=== PATIENT | female | born 1995 | race Caucasian/White ===

== ENCOUNTER → 2016-06-09 | Outpatient (CLI) | payer OTHER ==
[2015-07-04 21:59] VITALS: BP 142/99
--- NOTE | 2016-06-09 13:41 | RAD ---
HISTORY: Fall, back pain Study: Complete lumbar spine Comparison: None Findings: Vertebral alignment is normal. There is no spondylolisthesis. Vertebral body height is maintained th roughout. No compression fracture is visualized. Lumbarization of L5 is incidentally noted. There ap pears to be possible bilateral L5 spondylolysis. However, there is no significant spondylolisthesis at the L5-S1 level. There is mild to moderate narrowing of the disk space at L5-S1 level without sig nificant degenerative endplate sclerosis. IMPRESSION: 1. Possible L5 spondylolysis without significant spondylolisthesis. This may be correlated with CT a s clinically indicated. 2. L5-S1 spondylosis Reported By:
== END ==
LOC: RAD 13:02
PROVIDERS: ATTEND Internal Medicine
DX: M54.5 Low back pain (principal); X58.XXXA Exposure to other specified factors, initial encounter; M47.816 Spondylosis without myelopathy or radiculopathy, lumbar region
CPT/HCPCS: 72110

== ENCOUNTER → 2016-06-30 | Outpatient (CLI) | payer OTHER ==
[2015-07-04 21:59] VITALS: BP 142/99
--- NOTE | 2016-07-01 10:23 | MRI ---
HISTORY: Injury, fall, low back pain Study: MRI lumbar spine without contrast Comparison: None Technique: Multiplanar multi-sequence MRI of the lumbar spine was obtained. Sagittal T1, sagittal T 2, and stir weighted images, axial T1, and axial T2 images were obtained. Findings: The lumbar spine demonstrates normal alignment with the expected signal characteristics of the bone marrow. The conus of the cord terminates normally. T12 -- L1: No evidence for compressive disc disease. The neural foramina are patent. The joints are normal. L1 -- L2: No evidence for compressive disc disease. The neural foramina are patent. The joints are n ormal. L2 -- L3: No evidence for compressive disc disease. The neural foramina are patent. The joints are n ormal. L3 -- L4: No evidence for compressive disc disease. The neural foramina are patent. The joints are n ormal. L4 -- L5: No evidence for compressive disc disease. The neural foramina are patent. The joints are n ormal. L5 -- S1: There is a large mildly compressive central disc protrusion which effaces the thecal sac a nd abuts but does not displace the S1 nerve roots. The neural foramina are patent. The joints are no rmal. IMPRESSION: As above Reported By:
== END ==
LOC: RAD 12:04
PROVIDERS: ATTEND Nurse Practitioner Family
DX: S39.012A Strain of muscle, fascia and tendon of lower back, initial encounter (principal); X58.XXXA Exposure to other specified factors, initial encounter; M54.5 Low back pain
CPT/HCPCS: 72148

== ENCOUNTER 2016-08-24 10:27 | Observation (INO) | payer OTHER ==
[2016-08-24 12:29] VITALS: BMI 21.4
[2016-08-24] MEDS ORDERED: ZOFRAN INJ 4 MG VIAL IVP PRN (12:41)
[2016-08-24] MEDS ORDERED: TORADOL 15 MG VIAL IVP PRN (12:41)
[2016-08-24 12:56] LABS: BASOPHILS # (AUTO) 0.1 X10^3/uL (0.0-0.1); BASOPHILS % (AUTO) 0.7 % (0.2-1.0); EOSINOPHILS # (AUTO) 0.1 x10^3/uL (0.0-0.2); EOSINOPHILS % (AUTO) 0.5 % (0.9-2.9); HEMATOCRIT 40.1 % (36.0-47.0); LYMPHOCYTES # (AUTO) 1.9 X10^3/uL (1.3-2.9); LYMPHOCYTES % (AUTO) 15.3 % (21.0-51.0); MEAN CORPUSCULAR HEMOGLOBIN 26.4 pg (27.0-34.0); MEAN CORPUSCULAR HGB CONC 34.9 g/dL (33.0-35.0); MEAN CORPUSCULAR VOLUME 75.8 fL (80.0-100.0); MEAN PLATELET VOLUME 8.4 fL (7.4-11.0); MONOCYTES # (AUTO) 0.7 x10^3/uL (0.3-0.8); MONOCYTES % (AUTO) 5.9 % (0.0-13.0); NEUTROPHILS # (AUTO) 9.5 x10^3/uL (2.2-4.8); NEUTROPHILS % (AUTO) 77.6 % (42.0-75.0); PLATELET COUNT 335 X10^3/uL (150.0-450.0); RED BLOOD COUNT 5.29 X10^6/uL (3.5-5.4); RED CELL DISTRIBUTION WIDTH 13.4 % (11.6-16.5); WHITE BLOOD COUNT 12.2 X10^3/uL (3.6-10.0)
[2016-08-24] MEDS ORDERED: NS 1000 ML 1,000 ML IV SCH (13:00)
[2016-08-24 13:04] LABS: ALANINE AMINOTRANSFERASE 24 Units/L (12-78); ALBUMIN 4.1 g/dL (3.4-5.0); ALKALINE PHOSPHATASE 108 Units/L (45-150); ASPARTATE AMINO TRANSFERASE 14 Units/L (15-37); BLOOD UREA NITROGEN 13 mg/dL (7-18); CALCIUM 9.3 mg/dL (8.5-10.1); CARBON DIOXIDE 22.5 mmol/L (21-32); CHLORIDE 109 mmol/L (98-107); CREATININE 0.78 mg/dL (0.55-1.02); GLUCOSE 94 mg/dL (65-99); SODIUM 143 mmol/L (136-145); TOTAL PROTEIN 7.8 g/dL (6.4-8.2); eGFR BLACK RACES > 60 (>60); eGFR NON BLACK RACES > 60 (>60)
[2016-08-24] MEDS: ROCEPHIN VIAL 1 GM 1 GM in NS 50 ML IV + SPIKE MINIBAG* 50 ML IV SCH (13:34)
[2016-08-24] MEDS: LEVAQUIN PREMIX IV 500 MG 500 MG/100 ML BAG IV SCH (13:35)
--- NOTE | 2016-08-24 13:47 | CT ---
HISTORY: Left maxillary sinus tenderness Study: CT sinuses without contrast Comparison: None Technique: Axial non contrast images with coronal and sagittal reformats. Dose reduction procedures were used with MA/kv adjusted for body size. Findings: The frontal, sphenoid, maxillary and right ethmoid sinuses are clear. There is mild mucosal inflamma tory change in the left sphenoid sinus. The ostiomeatal complexes are patent. The nasal septum is mi dline. The middle ear spaces and mastoid air cells are clear. IMPRESSION: Mild mucosal thickening in the left sphenoid sinus likely inflammatory in origin. The remainder of the paranasal sinuses are clear. Reported By:
--- NOTE | 2016-08-24 13:52 | RAD ---
HISTORY: Cough, fever, dehydration Study: Chest one view Comparison: None Findings: The trachea is midline. The cardiac silhouette is unremarkable. The lungs are clear without focal infiltrate or effusion. The bony thorax is unremarkable. IMPRESSION: 1. No acute cardiopulmonary disease. Reported By:
[2016-08-24 16:07] LABS: BILIRUBIN,URINE NEGATIVE (NEGATIVE); BLOOD/HEMOGLOBIN,URINE NEGATIVE (NEGATIVE); GLUCOSE, URINE NEGATIVE (NEGATIVE); KETONES,URINE NEGATIVE (NEGATIVE); LEUKOCYTE ESTERASE ,URINE 3+ (NEGATIVE); NITRITES,URINE NEGATIVE (NEGATIVE); PROTEIN,URINE 1+ (NEGATIVE); UROBILINOGEN,URINE NORMAL (NORMAL)
[2016-08-24 16:16] LABS: APPEARANCE,URINE HAZY (CLEAR); BACTERIA,URINE TRACE /HPF (NEGATIVE); COLOR,URINE YELLOW (YELLOW); RBC,URINE 0-2 /HPF (NEGATIVE); SQUAMOUS EPITHELIAL CELL,UR FEW /HPF (NEGATIVE)
--- NOTE | 2016-08-24 18:42 | DR.H&P ---
H&P - History & Physical for Day of: H&P Date: 08/24/16 - Chief Complaint Chief Complaint: FEVER, WAYNE, LEFT EAR PAIN, N/V - Allergies Allergies/Adverse Reactions: Allergies Allergy/AdvReac Type Severity Reaction Status Date / Time MS Azithromycin Allergy Mild Verified 11/28/14 11:08 [From Zithromax] amoxicillin Allergy Verified 08/24/16 11:43 MS Penicillins [Penicillins] Allergy Verified 11/28/14 11:08 - History of Present Illness History of Present Illness: 20 WF DIRECT ADMIT FROM DR GOMEZ'S OFFICE WITH CO LEFT EAR PAIN, STREP THROAT, WAYNE, N/V. PT WAS GIVEN ROCEPHIN 1GM IM LAST WEEK WITH ORAL CEFDINIR, PT'S INSURANCE WOULD NOT PAY FOR MEDS, SO SHE WENT OVER WEEKEND WITHOUT ANTIBIOTICS. PT PALE AND CO NO APPTETITE. PT HAS PMH OF AR. PLAN TO ADMIT FOR IV HYDRATION, IV ATBX, CT SINUS PAIN AND NAUSEA CONTROL. REPEAT THROAT CULTURES. - Past Medical History Past Medical History: Arthritis - Past Surgical History Surgical History: Tonsillectomy - Family History Family Medical History: Diabetes Mellitus, Hypertension - Social History Does patient currently use any type of tobacco product: No Have you used tobacco products in the last 12 months: No Type of Tobacco Use: None Alcohol Use: None Drug Use: None - Medications Home Medications: Cefuroxime Axetil 1 tab PO BID 08/24/16 [History Confirmed 08/24/16] Cyclobenzaprine HCl [FLEXERIL 10 MG *] 1 tab PO TID PRN 08/24/16 [History Confirmed 08/24/16] Methylprednisolone Dosepak 4Mg [MEDROL DOSEPAK (4 mg tab x 21)] 1 tabs PO DAILY 08/24/16 [History Confirmed 08/24/16] Ondansetron [Zofran ODT 8 mg] 1 tab PO TID PRN 08/24/16 [History Confirmed 08/24] Promethazine HCl 1 tab PO BID PRN 08/24/16 [History Confirmed 08/24/16] - Review of Systems Constitutional: Fever, Chills, Sweats, Weakness Eyes: No Symptoms Reported ENT: Ear Pain, Nose Discharge, Throat Pain Respiratory: Cough Cardiovascular: No Symptoms Reported Gastrointestinal: Nausea, Vomiting Genitourinary: No Symptoms Reported Musculoskeletal: Back Pain Skin: No Symptoms Reported Neurological: No Symptoms Reported - Physical Exam Vital Signs: Temperature 97.8 F Pulse Rate [Right Brachial] 91 Respiratory Rate 18 Blood Pressure [Right Arm] 127/81 Blood Pressure [Left Arm] 132/99 Blood Pressure 142/99 O2 Sat by Pulse Oximetry 99 Oriented: Normal Eyes: Normal Ear: Left (TM CLOUDY FLUID LEVEL) Nose: Discharge Throat: Red Respiratory: Clear Throughout Cardiovascular: Normal : Normal Auscultation: Bowel Sounds: Normal Palpation: Normal Tenderness: Epigastric Skin: Normal Musculoskeletal: Back:Thoracic Speech Pattern: Clear, Appropriate - Assessment/Plan (1) Acute sinus infection Qualifiers: Sinusitis location: S Recurrence: R Status: Acute Plan: ADMIT, CT SINUS. IV ATBX, BLOOD CULTURES ON ADMISSION. CXR, IV HYDRATION. NAUSEA CONTROL (2) Nausea vomiting and diarrhea Status: Acute (3) Dehydration Status: Acute
[2016-08-24] MEDS: FLONASE NASAL SPRAY ENOSTRIL SCH (20:22)
[2016-08-24] MEDS: NORCO 5/325 MG TAB PO PRN (20:23)
[2016-08-24] MEDS: ZyrTEC TAB 10 MG PO SCH (20:23)
[2016-08-24] MEDS: COLACE CAP 100 MG PO SCH (20:23)
[2016-08-24] MEDS: PROTONIX INJ 40 MG VIAL IVP SCH (20:23)
[2016-08-24] MEDS: NS 1000 ML 1,000 ML IV SCH (20:30)
[2016-08-25] MEDS: NORCO 5/325 MG TAB PO PRN ×2 (08:28→19:17)
[2016-08-25] MEDS: ZyrTEC TAB 10 MG PO SCH (08:28)
[2016-08-25] MEDS: PROTONIX INJ 40 MG VIAL IVP SCH (08:30)
[2016-08-25] MEDS: ROCEPHIN VIAL 1 GM 1 GM in NS 50 ML IV + SPIKE MINIBAG* 50 ML IV SCH (08:30)
[2016-08-25] MEDS: LEVAQUIN PREMIX IV 500 MG 500 MG/100 ML BAG IV SCH (08:30)
[2016-08-25] MEDS: FLONASE NASAL SPRAY ENOSTRIL SCH (08:31)
[2016-08-25] MEDS ORDERED: FLEXERIL TAB 10 MG PO PRN (10:36)
[2016-08-25] MEDS ORDERED: PATIENT'S HOME MEDICATION (Ondansetron [Zofran Odt 8 Mg] 1 TAB) PO PRN (10:36)
[2016-08-25] MEDS: NS 1000 ML 1,000 ML IV SCH (13:31)
[2016-08-25] MEDS: COLACE CAP 100 MG PO SCH (21:38)
[2016-08-26] MEDS: NS 1000 ML 1,000 ML IV SCH (01:50)
[2016-08-26 07:48] LABS: BASOPHILS # (AUTO) 0.1 X10^3/uL (0.0-0.1); BASOPHILS % (AUTO) 1.1 % (0.2-1.0); EOSINOPHILS # (AUTO) 0.1 x10^3/uL (0.0-0.2); EOSINOPHILS % (AUTO) 1.4 % (0.9-2.9); HEMATOCRIT 40.4 % (36.0-47.0); LYMPHOCYTES # (AUTO) 2.6 X10^3/uL (1.3-2.9); LYMPHOCYTES % (AUTO) 29.7 % (21.0-51.0); MEAN CORPUSCULAR HEMOGLOBIN 26.7 pg (27.0-34.0); MEAN CORPUSCULAR HGB CONC 34.7 g/dL (33.0-35.0); MEAN CORPUSCULAR VOLUME 76.9 fL (80.0-100.0); MEAN PLATELET VOLUME 8.1 fL (7.4-11.0); MONOCYTES # (AUTO) 0.7 x10^3/uL (0.3-0.8); MONOCYTES % (AUTO) 7.9 % (0.0-13.0); NEUTROPHILS # (AUTO) 5.3 x10^3/uL (2.2-4.8); NEUTROPHILS % (AUTO) 59.9 % (42.0-75.0); PLATELET COUNT 318 X10^3/uL (150.0-450.0); RED BLOOD COUNT 5.26 X10^6/uL (3.5-5.4); RED CELL DISTRIBUTION WIDTH 13.4 % (11.6-16.5); WHITE BLOOD COUNT 8.9 X10^3/uL (3.6-10.0)
[2016-08-26 08:00] LABS: ALANINE AMINOTRANSFERASE 21 Units/L (12-78); ALBUMIN 3.6 g/dL (3.4-5.0); ALKALINE PHOSPHATASE 98 Units/L (45-150); ASPARTATE AMINO TRANSFERASE 7 Units/L (15-37); BLOOD UREA NITROGEN 11 mg/dL (7-18); CALCIUM 8.4 mg/dL (8.5-10.1); CHLORIDE 106 mmol/L (98-107); CREATININE 0.81 mg/dL (0.55-1.02); GLUCOSE 94 mg/dL (65-99); SODIUM 139 mmol/L (136-145); TOTAL PROTEIN 7.3 g/dL (6.4-8.2); eGFR BLACK RACES > 60 (>60); eGFR NON BLACK RACES > 60 (>60)
[2016-08-26] MEDS: ROCEPHIN VIAL 1 GM 1 GM in NS 50 ML IV + SPIKE MINIBAG* 50 ML IV SCH (08:24)
[2016-08-26] MEDS: PROTONIX INJ 40 MG VIAL IVP SCH (08:24)
[2016-08-26] MEDS: LEVAQUIN PREMIX IV 500 MG 500 MG/100 ML BAG IV SCH (08:24)
[2016-08-26] MEDS: NORCO 5/325 MG TAB PO PRN (08:24)
[2016-08-26] MEDS: ZyrTEC TAB 10 MG PO SCH (08:25)
[2016-08-26] MEDS: FLONASE NASAL SPRAY ENOSTRIL SCH (08:29)
[2016-08-26 18:13] VITALS: BP 121/90
== END 2016-08-26 18:30 | disposition home or self-care (01) ==
LOC: MED/SURG 10:27 → UNDOADMOB 10:27 → MED/SURG 10:50
PROVIDERS: ADMIT Internal Medicine; ATTEND Internal Medicine
DX: H66.92 Otitis media, unspecified, left ear (principal); R11.2 Nausea with vomiting, unspecified; J02.0 Streptococcal pharyngitis; R51 Headache; J01.80 Other acute sinusitis; R19.7 Diarrhea, unspecified; E86.0 Dehydration; D72.828 Other elevated white blood cell count
CPT/HCPCS: 36415; 70486; 71010; 80053; 81001; 85025; 87040; 87070; 87880; A4222; C9113; G0378; J0696; J1956

== ENCOUNTER 2016-10-08 11:43 | Emergency (ER) | payer OTHER ==
[2016-10-08 12:06] VITALS: BP 129/88; BMI 22.2
--- NOTE | 2016-10-08 12:35 | DR.NAUSEAF ---
HPI - Time Seen Time seen: 12:28 - Primary Care Physician Primary Care Physician: JENKINS - Complaints Chief Complaint Doctors Comments: Patient complains of nausea, vomiting, and diarrhea for the past three days. States she is unable to eat anything without it going through her. states she has been having stomach cramps with the pain being 10 of 10. States her periods are irregular and she is on the Depro Provera shots and she has not missed any dosages. States she has had a cough with fever but denies SOB, chest pain or wheezing. Patient states she has not seen any blood in her stool but sees some blood when she wipes and has rectal irritation. Chief Complaint:: PT. C/O N/V/D X 3 DAYS. PT. ALSO C/O WEAKNESS. PT. STATES SHE HAS BEEN TAKING PHENERGAN BY MOUTH AT HOME. - Reviewed Nurses Notes Reviewed: Yes - Source History Provided: Patient, EMS - Mode of Arrival Mode of Arrival: EMS - Timing Onset of Chief Complaint: 10/05/16 - Context Onset: After Eating Recent: Contact Exposure (new food the other day) Possible Ingestion: Unknown : No : 1 Para: 1 Abortions: 0 History of: None - Quality Quality: Food Particles - Associated Signs and Symptoms Abdominal Pain Quality: Cramping, Sharp Abdominal Pain Location: Diffuse, Epigastric, Suprapubic Symptoms: Abdominal Pain, Diarrhea, Fever PMH - PMH Past Medical History: No Past Medical History: Arthritis Past Surgical History: Yes Surgical History: - Family History History of Family Medical Conditions: Yes Family Medical History: Diabetes Mellitus, Hypertension - Social History Does patient currently use any type of tobacco product: No Have you used tobacco products in the last 12 months: No Type of Tobacco Use: None Does any household member use tobacco: No Alcohol Use: None Do you use any recreational Drugs:: No Lives With: Significant Other Lives Where: Home - infectious screening In the last 2 months have you had wt loss of >10#?: NO Have you had fever, night sweats or hemotysis?: No Have you traveled outside the country in the last 6 months?: No Isolation: Standard ROS - Review of Systems Constitutional: No Symptoms Reported, Chills, Fever, Weakness, Loss of Appetite Eyes: No Symptoms Reported. negative: See HPI, Eye Pain, Blurred Vision, Tearing, Discharge, Photophobia, Diplopia, Other ENTM: No Symptoms Reported, Nose Congestion. negative: See HPI, Ear Pain, Ear Discharge, Pulling on Ears, Hearing Loss, Nose Pain, Nose Discharge, Epistaxis, Mouth Pain, Mouth Swelling, Loose Teeth, Drooling, Throat Pain, Throat Swelling , Ear Foreign Body Respiratoy: No Symptoms Reported, Non-Productive Cough. negative: See HPI, Productive Cough, Moist Cough, Dry Cough, Hacking Cough, Barking Cough, Brassy Cough, Orthopnea, Short of Breath, Stridor, Wheezing, Hemoptysis, Other Cardiovascular: No Symptoms Reported. negative: See HPI, Chest Pain, Edema, Palpitations, Syncope, Cyanosis, Skin Mottling, Other Gastrointestinal/Abdominal: No Symptoms Reported, Abdominal Pain, Diarrhea, Nausea, Vomiting Genitourinary: No Symptoms Reported. negative: See HPI, Discharge, Dysuria, Frequency, Hematuria, Pain, Bleeding, Other Neurological: No Symptoms Reported. negative: See HPI, Anxiety, Depressed, Emotional Problems, Headache, Numbness, Paresthesia, Pre-existing Deficit, Seizure, Tingling, Tremors, Weakness, Dizziness, Problems Walking, Speech Problem, Other Musculoskeletal: No Symptoms Reported Integumentary: No Symptoms Reported. negative: See HPI, Change in Color, Change in Hair/Nails, Dryness, Lesions, Lumps, Rash, Itching, Wound, Bruises, Juandice, Other Hematologic/Lymphatic: No Symptoms Reported Endocrine: No Symptoms Reported, Decreased Appetite Psychiatric: No Symptoms Reported. negative: See HPI, Anxiety, Depression, Hallucinations, Excessive crying, Suicidal, Other PE - Vital Signs Vitals: Temperature 97.7 F Pulse Rate 97 Respiratory Rate 22 Blood Pressure [Right Arm] 121/90 Blood Pressure [Left Arm] 125/89 Blood Pressure 129/88 O2 Sat by Pulse Oximetry 100 - General Limitations: No Limitations. negative: Language Barrier, Altered Mental Status , Physical Limitation, Other General Appearance: Alert, In No Apparent Distress, In Distress (mild) - Head Head Exam: Normal Inspection, Atraumatic, Normocephalic - Eyes Eye exam: Normal Appearance, PERRL, EOMI. negative: Scleral Icterus, Conjunctival Injection, Nystagmus, Miosis, Mydrasis, Periorbital Swelling, Periorbital Tenderness, Other - ENT ENT Exam: Normal Exam, Normal Oropharynx, Normal External Ear Exam, Mucous Membranes Moist, TM's Normal Bilaterally - Neck Neck Exam: Normal Inspection, Full ROM, Trachea Midline. negative: Tenderness, Meningismus, Lymphadenopathy, Thyromegaly, Other - Chest Chest Inspection: Normal Inspection, Symmetric Chest Wall Rise. negative: Tenderness, Rash, Abscess, Other - Respiratory Respiratory Exam: Normal Lung Sounds Bilat. negative: Accessory Muscle Use, Chest Wall Tenderness, Prolonged Expiratory Phase, Respiratory Distress, Stridor , Other Respiratory Exam: Bilateral Clear to Auscultation - Cardiovascular Cardiovascular Exam: Regular Rate, Normal Rhythm, Normal Heart Sounds. negative : Bradycardia, Tachycardia, Irregular Rhythm, Systolic Murmur, Diastolic Murmur , Rubs, Gallop, Clicks, JVD, +S1, +S2, +S3, +S4, Other - Abdominal Exam Abdominal Exam: Normal Inspection, Normal Bowel Sounds, Soft. negative: Distention, Tenderness, Guarding, Rebound, Rigidity, Dimnished Bowel Sounds, Hyperactive Bowel Sounds, Hypoactive Bowel Sounds, Organomegaly, Trauma, Incision, Ascites, Mass, Bruit, Pulsatile Mass, Hernia, Other Abdominal Tenderness: LLQ, Suprapubic, Moderate - Rectal Rectal Exam: Deferred - External Exam: Female: Deferred : Speculum Exam (Female): Deferred : Bimanual Exam (female): Deferred - Extremities Extremities Exam: Normal Inspection, Full ROM, Normal Capillary Refill. negative: Tenderness, Edema, Joint Swelling, Calf Tenderness, Other - Back Back Exam: Normal Inspection, Full ROM. negative: Tenderness, (R) CVA Tenderness, (L) CVA Tenderness, Muscle Spasm, Paraspinal Tenderness, Vertebral Tenderness, Rashes, (R) Sciatic Notch Tenderness, (L) Sciatic Notch Tendern, (R ) Straight Leg Raise, (L) Straight Leg Raise, Other - Neurologic Neurological Exam: Alert, Oriented X3, CN II-XII Intact, Normal Gait, Reflexes Normal - Psychiatric Psychiatric Exam: Normal Affect, Normal Mood - Skin Skin Exam: Warm, Dry, Intact, Normal Color. negative: Rash, Cyanosis, Diaphoresis, Erythema, Pallor, Mottled, Other ROR - Labs Reviewed Laboratory Results Reviewed?: Yes (all labs and x-ray results reviewed and discussed with patient) Result Diagrams: 10/08/16 12:39 10/08/16 12:39 Laboratory: 10/08/16 12:44 Stool - Final WBC 12.7 X10^3/uL (3.6-10.0) H 10/08/16 12:39 RBC 5.12 X10^6/uL (3.5-5.4) 10/08/16 12:39 Hgb 13.5 g/dL (12.0-16.0) 10/08/16 12:39 Hct 39.0 % (36.0-47.0) 10/08/16 12:39 MCV 76.2 fL (80.0-100.0) L 10/08/16 12:39 MCH 26.4 pg (27.0-34.0) L 10/08/16 12:39 MCHC 34.6 g/dL (33.0-35.0) 10/08/16 12:39 RDW 13.2 % (11.6-16.5) 10/08/16 12:39 Plt Count 299 X10^3/uL (150.0-450.0) 10/08/16 12:39 MPV 8.0 fL (7.4-11.0) 10/08/16 12:39 Neut % 73.5 % (42.0-75.0) 10/08/16 12:39 Lymph % 16.8 % (21.0-51.0) L 10/08/16 12:39 Grady % 8.3 % (0.0-13.0) 10/08/16 12:39 Eos % 0.5 % (0.9-2.9) L 10/08/16 12:39 Baso % 0.9 % (0.2-1.0) 10/08/16 12:39 Neut # 9.3 x10^3/uL (2.2-4.8) H 10/08/16 12:39 Lymph # 2.1 X10^3/uL (1.3-2.9) 10/08/16 12:39 Grady # 1.1 x10^3/uL (0.3-0.8) H 10/08/16 12:39 Eos # 0.1 x10^3/uL (0.0-0.2) 10/08/16 12:39 Baso # 0.1 X10^3/uL (0.0-0.1) 10/08/16 12:39 Absolute Nucleated RBC 0.0 /100WBC 10/08/16 12:39 Sodium 138 mmol/L (136-145) 10/08/16 12:39 Corrected Sodium TNP 10/08/16 12:39 Potassium 3.2 mmol/L (3.5-5.1) L 10/08/16 12:39 Chloride 103 mmol/L (98-107) 10/08/16 12:39 Carbon Dioxide 26.2 mmol/L (21-32) 10/08/16 12:39 BUN 6 mg/dL (7-18) L 10/08/16 12:39 Creatinine 0.80 mg/dL (0.55-1.02) 10/08/16 12:39 Est GFR (MDRD) Af Amer > 60 (>60) 10/08/16 12:39 Est GFR (MDRD) Non-Af > 60 (>60) 10/08/16 12:39 Glucose 93 mg/dL (65-99) 10/08/16 12:39 Calcium 8.6 mg/dL (8.5-10.1) 10/08/16 12:39 Corrected Calcium TNP 10/08/16 12:39 Total Bilirubin 0.60 mg/dL (0.2-1.0) 10/08/16 12:39 AST 22 Units/L (15-37) 10/08/16 12:39 ALT 36 Units/L (12-78) 10/08/16 12:39 Alkaline Phosphatase 109 Units/L (45-150) 10/08/16 12:39 Total Protein 8.0 g/dL (6.4-8.2) 10/08/16 12:39 Albumin 3.9 g/dL (3.4-5.0) 10/08/16 12:39 Globulin 4.1 g/dL (2.5-4.5) 10/08/16 12:39 Albumin/Globulin Ratio 1.0 Ratio (1.1-2.1) L 10/08/16 12:39 Amylase 26 Units/L (25-115) 10/08/16 12:39 Lipase 66 Units/L (73-393) L 10/08/16 12:39 HCG, Qual Negative <10 mIU/mL 10/08/16 12:39 Specimen Type Clean catch urine 10/08/16 16:35 Urine Color Yellow (YELLOW) 10/08/16 16:35 Urine Appearance Hazy (CLEAR) 10/08/16 16:35 Urine pH 7.0 (5.0 - 8.0) 10/08/16 16:35 Ur Specific [place] 1.010 (1.000-1.030) 10/08/16 16:35 Urine Protein 2+ (NEGATIVE) 10/08/16 16:35 Urine Glucose (UA) Negative (NEGATIVE) 10/08/16 16:35 Urine Ketones 3+ (NEGATIVE) 10/08/16 16:35 Urine Occult Blood 5+ (NEGATIVE) 10/08/16 16:35 Urine Nitrite Negative (NEGATIVE) 10/08/16 16:35 Urine Bilirubin Negative (NEGATIVE) 10/08/16 16:35 Urine Urobilinogen Normal (NORMAL) 10/08/16 16:35 Ur Leukocyte Esterase 1+ (NEGATIVE) 10/08/16 16:35 Urine RBC 08 - 12 /HPF (NEGATIVE) 10/08/16 16:35 Urine WBC 02 - 05 /HPF (NEGATIVE) 10/08/16 16:35 Ur Squamous Epith Cells Many /HPF (NEGATIVE) 10/08/16 16:35 Amorphous Sediment 2+ /HPF (NEGATIVE) 10/08/16 16:35 Urine Bacteria Trace /HPF (NEGATIVE) 10/08/16 16:35 Hyaline Casts Rare /LPF (NEGATIVE) 10/08/16 16:35 Urine Mucus Moderate /HPF (NEGATIVE) 10/08/16 16:35 Ur Culture Indicated? No/not indicated 10/08/16 16:35 Stool Description <1 g. unformed/brown 10/08/16 12:44 Stl Occult Blood (IFOB) Positive (NEGATIVE) A 10/08/16 12:44 Stool for White Cells Few (None) 10/08/16 12:44 Stl C. diff Tox B Gene Negative (NEGATIVE) 10/08/16 12:44 Stl C. diff [id number] Negative (NEGATIVE) 10/08/16 12:44 - XRAY XRAY Interpreted by: Radiologist (CT abdomen and pelvis: Multiple reactive lymph nodes suggestive of mesenteric adenits. Normal appendix. Normal gallbladder) - Diagnosis Discharge Problem: Gastroenteritis, Proctitis, Hypokalemia, Abdominal pain, Mesenteric adenitis - Discharge Plan Disposition: 01 HOME, SELF-CARE Condition: Stable Prescriptions: RX: Diphenoxylate/Atropine [LOMOTIL TAB *] 1 tab PO BID #14 tab RX: Levofloxacin [LEVAQUIN TAB 500 MG *] 500 mg PO DAILY #10 tab RX: Ondansetron [Zofran Odt] 4 mg PO Q8H PRN #12 tab PRN Reason: Nausea/Vomiting - Follow ups/Referrals Follow ups/Referrals: TOMAS JENKINS [Primary Care Provider] - 3 days - Instructions Instructions: Viral Gastroenteritis, Adult, Contact Precautions, [id number], Mesenteric Adenitis, Pediatric, Hypokalemia
[2016-10-08] MEDS ORDERED: ZOFRAN INJ 4 MG VIAL IVP ONE (12:44)
[2016-10-08] MEDS ORDERED: LOMOTIL PO ONE (12:44)
[2016-10-08] MEDS ORDERED: TORADOL 30 MG VIAL IVP STA (12:44)
[2016-10-08 12:49] LABS: BASOPHILS # (AUTO) 0.1 X10^3/uL (0.0-0.1); BASOPHILS % (AUTO) 0.9 % (0.2-1.0); EOSINOPHILS # (AUTO) 0.1 x10^3/uL (0.0-0.2); EOSINOPHILS % (AUTO) 0.5 % (0.9-2.9); HEMOGLOBIN 13.5 g/dL (12.0-16.0); LYMPHOCYTES # (AUTO) 2.1 X10^3/uL (1.3-2.9); LYMPHOCYTES % (AUTO) 16.8 % (21.0-51.0); MEAN CORPUSCULAR HEMOGLOBIN 26.4 pg (27.0-34.0); MEAN CORPUSCULAR HGB CONC 34.6 g/dL (33.0-35.0); MEAN CORPUSCULAR VOLUME 76.2 fL (80.0-100.0); MONOCYTES # (AUTO) 1.1 x10^3/uL (0.3-0.8); MONOCYTES % (AUTO) 8.3 % (0.0-13.0); NEUTROPHILS # (AUTO) 9.3 x10^3/uL (2.2-4.8); NEUTROPHILS % (AUTO) 73.5 % (42.0-75.0); PLATELET COUNT 299 X10^3/uL (150.0-450.0); RED BLOOD COUNT 5.12 X10^6/uL (3.5-5.4); RED CELL DISTRIBUTION WIDTH 13.2 % (11.6-16.5); WHITE BLOOD COUNT 12.7 X10^3/uL (3.6-10.0)
[2016-10-08 13:00] LABS: ALANINE AMINOTRANSFERASE 36 Units/L (12-78); ALBUMIN 3.9 g/dL (3.4-5.0); ALKALINE PHOSPHATASE 109 Units/L (45-150); AMYLASE 26 Units/L (25-115); ASPARTATE AMINO TRANSFERASE 22 Units/L (15-37); BLOOD UREA NITROGEN 6 mg/dL (7-18); CALCIUM 8.6 mg/dL (8.5-10.1); CARBON DIOXIDE 26.2 mmol/L (21-32); CHLORIDE 103 mmol/L (98-107); GLUCOSE 93 mg/dL (65-99); LIPASE 66 Units/L (73-393); SODIUM 138 mmol/L (136-145); eGFR BLACK RACES > 60 (>60); eGFR NON BLACK RACES > 60 (>60)
[2016-10-08] MEDS ORDERED: ZOFRAN INJ 4 MG VIAL ONE (13:07)
[2016-10-08] MEDS ORDERED: TORADOL 30 MG VIAL ONE (13:07)
[2016-10-08] MEDS ORDERED: LOMOTIL ONE (13:08)
[2016-10-08 13:24] LABS: STOOL FOR WBC Few
[2016-10-08 13:29] LABS: SERUM PREGNANCY TEST, QUAL NEGATIVE <10 mIU/mL
--- NOTE | 2016-10-08 13:30 | CT ---
CT ABDOMEN AND PELVIS WITHOUT CONTRAST CLINICAL HISTORY: 20-year-old female with nausea, vomiting and diarrhea. COMPARISON: None. TECHNIQUE: Multiple contiguous computed tomographic axial images of the abdomen and pelvis were obta ined without the use of oral or intravenous contrast. Images were reformatted in the coronal and sag ittal planes. FINDINGS: The lung bases demonstrate no evidence of focal air-space opacification, pleural effusion, pneumotho rax, or suspicious pulmonary nodules. The imaged inferior mediastinum and heart are normal in appea steven without evidence of pericardial effusion. The liver, gallbladder, pancreas, and spleen are within normal limits for noncontrast imaging. The adrenal glands and kidneys are normal bilaterally. There are no nephroureteral stones or perinep hric fluid collections. There is no evidence of hydroureteronephrosis and the ureters run in an unob structed course to a well distended urinary bladder. The uterus is anteverted and retroflexed and normal in size. The ovaries, vagina and perineum are w ithin normal limits. There are multiple lymph nodes throughout the mesentery with a conglomeration of enlarged reactive a ppearing nodes in the right lower quadrant measuring up to 9 mm. The appendix is normal in appearanc e. The bowel is without obstruction or inflammation and there is no free fluid or free air within t he peritoneal cavity. There are no pathologically enlarged lymph nodes in the abdomen or pelvis. The arteriovascular structures are within normal limits for a study without contrast. Soft tissues are normal. The osseous structures are intact without fracture or malalignment. IMPRESSION: 1. Multiple reactive lymph nodes within the mesenteries and right lower quadrant suggestive of mesen teric adenitis, with no other acute intra-abdominal or intrapelvic process. 2. Normal appendix. 3. Normal gallbladder. Reported By:
[2016-10-08] MEDS ORDERED: ROCEPHIN VIAL 1 GM 1 GM in NS 50 ML IV + SPIKE MINIBAG* 50 ML IV ONE (14:50)
[2016-10-08] MEDS ORDERED: PROTONIX INJ 40 MG VIAL IVP ONE (14:51)
[2016-10-08] MEDS ORDERED: NS 1/2 + KCL 20 MEQ/L 1,000 ML IV ONE (14:54)
[2016-10-08] MEDS ORDERED: ROCEPHIN 1 GM IV PREMIX * OUT OF STOCK 50 ML IV ONE (15:06)
[2016-10-08] MEDS ORDERED: NS 1/2 1000 ML IV 1,000 ML IV ONE (15:24)
[2016-10-08 17:00] LABS: BILIRUBIN,URINE NEGATIVE (NEGATIVE); BLOOD/HEMOGLOBIN,URINE 5+ (NEGATIVE); GLUCOSE, URINE NEGATIVE (NEGATIVE); KETONES,URINE 3+ (NEGATIVE); LEUKOCYTE ESTERASE ,URINE 1+ (NEGATIVE); NITRITES,URINE NEGATIVE (NEGATIVE); PROTEIN,URINE 2+ (NEGATIVE); UROBILINOGEN,URINE NORMAL (NORMAL)
[2016-10-08 17:16] LABS: APPEARANCE,URINE HAZY (CLEAR); COLOR,URINE YELLOW (YELLOW)
[2016-10-08 17:20] LABS: SQUAMOUS EPITHELIAL CELL,UR MANY /HPF (NEGATIVE)
[2016-10-08 17:21] LABS: AMORPHOUS SEDIMENT,UR 2+ /HPF (NEGATIVE); BACTERIA,URINE TRACE /HPF (NEGATIVE); HYALINE CASTS, URINE RARE /LPF (NEGATIVE); MUCUS,URINE MODERATE /HPF (NEGATIVE)
== END 2016-10-08 17:58 | disposition home or self-care (01) ==
LOC: ER 11:47
DX: K52.89 Other specified noninfective gastroenteritis and colitis (principal); K62.89 Other specified diseases of anus and rectum; R10.84 Generalized abdominal pain; I88.0 Nonspecific mesenteric lymphadenitis
CPT/HCPCS: 36415; 74176; 80053; 81001; 82150; 82270; 83690; 84703; 85025; 87045; 87205; 87427; 87493; 87899; 96365; 96367; 96374; 96375; 99283; A4216; A4222; C9113; J0696; J1885; J2405

== ENCOUNTER 2017-04-14 20:26 | Emergency (ER) | payer OTHER ==
[2017-04-14 20:39] VITALS: BMI 20.7
[2017-04-14] MEDS ORDERED: TORADOL 30 MG VIAL IVP STA (21:09)
[2017-04-14] MEDS ORDERED: ZOFRAN INJ 4 MG VIAL IVP ONE (21:09)
--- NOTE | 2017-04-14 21:15 | DR.GENAD ---
HPI - PCP Primary Care Physician: PATRICIA - Complaint/Symptoms Chief Complaint Doctors Comments: Patient complains of left temporal pain and occipital pain onset after taking a Depro shot recently. States she has been having dry heaves today but denies cold, cough, fever or chills. States the pain is 10 of 10 and is the worst headache of her life. States she took tylenol earlier but it did not help. States this is the worst headache of her whole life. She denies numbness, tingling, slurred speech or blurred vision. She denies any recent trauma. States she has had a headache all day. Chief Complaint:: SEVERE HEADACHE AFTER GETTING DEPO SHOT FROM HEALTH DEPARTMENT ; NO S/S AT SIGHT WHERE SHOT WAS GIVEN; PT SAW PRIMARY CARE ON MONDAY FOR NAUSEA AND DIAHRREA Self Treatment fo Chief Complaint: EXCEDRIN MIGRAINE; LAST DOSE APPROX 1830 TODAY - Nurses notes reviewed Nurses Notes Review: Yes - Source History Provided: Patient - Mode of Arrival Mode of Arrival: Ambulatory - Timing Onset of Chief Complaint: 04/13/17 Came on: Suddenly - Duration Duration: Constant How lon Duration: Days - Location Location: left temporal headache - Severity Severity: Moderate - Modifying Factors Worsens:: nothing Improves:: nothing PMH - PMH Past Medical History: No Past Medical History: Arthritis Past Surgical History: No Surgical History: - Family History History of Family Medical Conditions: No Family Medical History: Diabetes Mellitus, Hypertension - Social History Alcohol Use: None Do you use any recreational Drugs:: No Lives With: Family Lives Where: Home - infectious screening In the last 2 months have you had wt loss of >10#?: NO Have you had fever, night sweats or hemotysis?: No Have you traveled outside the country in the last 6 months?: No Isolation: Standard ROS - Review of Systems Constitutional: No Symptoms Reported. negative: See HPI, Chills, Diaphoresis, Fever, Malaise, Weakness, Irritable, Fatigue, Loss of Appetite, Other Eyes: No Symptoms Reported. negative: See HPI, Eye Pain, Blurred Vision, Tearing, Discharge, Photophobia, Diplopia, Other ENTM: No Symptoms Reported, Nose Discharge, Nose Congestion. negative: See HPI , Ear Pain, Ear Discharge, Pulling on Ears, Hearing Loss, Nose Pain, Epistaxis, Mouth Pain, Mouth Swelling, Loose Teeth, Drooling, Throat Pain, Throat Swelling , Ear Foreign Body Respiratoy: No Symptoms Reported. negative: See HPI, Productive Cough, Non- Productive Cough, Moist Cough, Dry Cough, Hacking Cough, Barking Cough, Brassy Cough, Orthopnea, Short of Breath, Stridor, Wheezing, Hemoptysis, Other Cardiovascular: No Symptoms Reported. negative: See HPI, Chest Pain, Edema, Palpitations, Syncope, Cyanosis, Skin Mottling, Other Gastrointestinal/Abdominal: No Symptoms Reported, Nausea. negative: See HPI, Abdominal Pain, Constipation, Diarrhea, Vomiting, Food Intolerance, Other Genitourinary: No Symptoms Reported. negative: See HPI, Discharge, Dysuria, Frequency, Hematuria, Pain, Bleeding, Other Neurological: No Symptoms Reported, Headache. negative: See HPI, Anxiety, Depressed, Emotional Problems, Numbness, Paresthesia, Pre-existing Deficit, Seizure, Tingling, Tremors, Weakness, Dizziness, Problems Walking, Speech Problem, Other Musculoskeletal: No Symptoms Reported Integumentary: No Symptoms Reported Hematologic/Lymphatic: No Symptoms Reported. negative: See HPI, Anemia, Blood Clots, Easy Bleeding, Easy Bruising, Swollen Glands, Lymphadenopathy, Other Endocrine: No Symptoms Reported Psychiatric: No Symptoms Reported. negative: See HPI, Anxiety, Depression, Hallucinations, Excessive crying, Suicidal, Other PE - Vital Signs Vitals: Pulse Rate 98 Respiratory Rate 22 Blood Pressure [Right Arm] 121/90 Blood Pressure [Left Arm] 125/89 Blood Pressure 132/88 O2 Sat by Pulse Oximetry 100 - General Limitations: No Limitations General Appearance: Alert, In Distress (mild) - Head Head Exam: Normal Inspection, Atraumatic, Normocephalic - Eyes Eye exam: Normal Appearance, PERRL, EOMI. negative: Scleral Icterus, Conjunctival Injection, Nystagmus, Miosis, Mydrasis, Periorbital Swelling, Periorbital Tenderness, Other - ENT ENT Exam: Normal Exam, Normal Oropharynx, Normal External Ear Exam, Mucous Membranes Moist, TM's Normal Bilaterally External Ear Exam: Normal External Inspection TM/Canal Exam: Bilateral Normal Nose Exam: Normal Nose Exam (nasal congestion with erythema) Mouth Exam: Normal Inspection. negative: Drooling, Trismus, Lip Swelling, Tongue Elevation, Tongue Swelling, Laceration, Other Throat Exam: Normal Inspection. negative: Tonsillar Erythema, Tonsillomegaly, Tonsillar Exudate, R Peritonsillar Mass, L Peritonsillar Mass, Muffled Voice, Other - Neck Neck Exam: Normal Inspection, Full ROM, Trachea Midline. negative: Tenderness, Meningismus, Lymphadenopathy, Thyromegaly, Other - Chest Chest Inspection: Normal Inspection, Symmetric Chest Wall Rise. negative: Tenderness, Rash, Abscess, Other - Respiratory Respiratory Exam: Normal Lung Sounds Bilat Respiratory Exam: Bilateral Clear to Auscultation - Cardiovascular Cardiovascular Exam: Regular Rate, Normal Rhythm, Normal Heart Sounds. negative : Bradycardia, Tachycardia, Irregular Rhythm, Systolic Murmur, Diastolic Murmur , Rubs, Gallop, Clicks, JVD, +S1, +S2, +S3, +S4, Other - Abdominal Exam Abdominal Exam: Normal Inspection, Normal Bowel Sounds, Soft Abdominal Tenderness: negative: RUQ, RLQ, LUQ, LLQ, Epigastrium, Suprapubic, Diffuse, Mild, Moderate, Severe, Other - Extremities Extremities Exam: Normal Inspection, Full ROM, Normal Capillary Refill. negative: Tenderness, Edema, Joint Swelling, Calf Tenderness, Other - Back Back Exam: Normal Inspection, Full ROM. negative: Tenderness, (R) CVA Tenderness, (L) CVA Tenderness, Muscle Spasm, Paraspinal Tenderness, Vertebral Tenderness, Rashes, (R) Sciatic Notch Tenderness, (L) Sciatic Notch Tendern, (R ) Straight Leg Raise, (L) Straight Leg Raise, Other - Neurologic Neurological Exam: Alert, Oriented X3, CN II-XII Intact, Reflexes Normal. negative: Normal Gait (gait not tested) - Psychiatric Psychiatric Exam: Normal Affect, Normal Mood. negative: Depressed, Agitated, Anxious, Flat Affect, Manic, Homicidal Ideation, Suicidal Ideation, Other - Skin Skin Exam: Warm, Dry, Intact, Normal Color ROR - XRAY XRAY Interpreted by: Radiologist (CT head: Unremarbable CT of head.) - Diagnosis Discharge Problem: Acute frontal sinusitis Headache Qualifiers: Headache type: unspecified Headache chronicity pattern: acute headache - Discharge Plan Disposition: 01 HOME, SELF-CARE Condition: Stable Prescriptions: Cetirizine HCl [Zyrtec Tab 10 mg] 10 mg PO DAILY #30 tab Fluticasone Nasal Ovid [FLONASE NASAL SPRAY *] 2 sprays ENOSTRIL DAILY #1 each Ibuprofen [MOTRIN TAB 800 MG *] 800 mg PO BID PRN #30 tab PRN Reason: Pain/Inflammation - Follow ups/Referrals Follow ups/Referrals: ERROL GOMEZ [Primary Care Provider] - 3 days - Instructions Instructions: Headache, Pediatric, Sinus Headache, [id number], Sinusitis, Adult, [id number]
[2017-04-14] MEDS ORDERED: TORADOL 30 MG VIAL ONE (21:33)
[2017-04-14] MEDS ORDERED: ZOFRAN INJ 4 MG VIAL ONE (21:33)
--- NOTE | 2017-04-14 21:35 | CT ---
CT of the head without contrast. Indication: Severe headache. Comparison: None Findings: There is no intracranial hemorrhage, mass effect or evidence of acute ischemia. The ventric les and extra-axial spaces are normal. The globes, sella and posterior fossa show no abnormality. The visualized paranasal sinuses and mastoid air cells are clear bilaterally. Conclusion: Unremarkable CT of the head. Reported By:
[2017-04-14 21:50] LABS: BILIRUBIN,URINE NEGATIVE (NEGATIVE); BLOOD/HEMOGLOBIN,URINE NEGATIVE (NEGATIVE); GLUCOSE, URINE NEGATIVE (NEGATIVE); KETONES,URINE NEGATIVE (NEGATIVE); LEUKOCYTE ESTERASE ,URINE NEGATIVE (NEGATIVE); NITRITES,URINE POSITIVE (NEGATIVE); PROTEIN,URINE NEGATIVE (NEGATIVE); UROBILINOGEN,URINE NORMAL (NORMAL)
[2017-04-14 22:21] VITALS: BP 134/76
[2017-04-14 23:19] LABS: AMORPHOUS SEDIMENT,UR 2+ /HPF (NEGATIVE); APPEARANCE,URINE CLOUDY (CLEAR); BACTERIA,URINE 2+ /HPF (NEGATIVE); COLOR,URINE YELLOW (YELLOW); RBC,URINE 0-3 /HPF (NEGATIVE); SQUAMOUS EPITHELIAL CELL,UR FEW /HPF (NEGATIVE)
== END 2017-04-14 22:36 | disposition home or self-care (01) ==
LOC: ER 20:33
DX: J01.80 Other acute sinusitis (principal); R51 Headache; B96.29 Other Escherichia coli [E. coli] as the cause of diseases classified elsewhere
CPT/HCPCS: 70450; 81001; 87086; 87088; 87186; 96365; 96374; 96375; 99282; 99283; J1885; J2405

== ENCOUNTER → 2017-06-22 | Outpatient (CLI) | payer OTHER ==
--- NOTE | 2017-06-22 11:25 | MRI ---
STUDY: MRI OF THE LUMBAR SPINE HISTORY: Low back pain that extends down both legs. Comparison: None. Technique: Multiplanar multi-sequence MRI of the lumbar spine was performed. Sagittal T1, sagittal T 2, and STIR images, axial T1, and axial T2 images were obtained. Findings: Sagittal images: Vertebral body heights and alignment are within normal limits. Marrow signal is age-appropriate. Ther e is degenerative disc disease at the L5/S1 level. No significant endplate changes appreciated. The conus medullaris is normal in appearance terminating at the level of L2. Axial images: T12 -- L1: Normal. L1 -- L2: Normal. L2 -- L3: Normal. L3 -- L4: Normal. L4 -- L5: Normal. L5 -- S1: There is a broad-based disc bulge with central focal disc herniation. This results in effac ement of the ventral thecal sac, but no significant spinal stenosis. No definite nerve root compressi on is appreciated. The neural foramina are adequate. IMPRESSION: 1. Degenerative disc disease at L5/S1, with central focal disc herniation. 2. No significant spinal stenosis or neural foraminal narrowing. Reported By:
== END | disposition home or self-care (01) | DRG 552 ==
LOC: RAD 09:52
PROVIDERS: ATTEND Nurse Practitioner Family
DX: M54.5 Low back pain (principal); M51.37 Other intervertebral disc degeneration, lumbosacral region
CPT/HCPCS: 72148

== ENCOUNTER 2020-03-31 10:54 | Observation (INO) ==
[2020-03-31 10:57] VITALS: BMI 28.1
[2020-03-31] MEDS ORDERED: DEMEROL INJ IVP ONE ×2 (11:10→13:26)
[2020-03-31] MEDS ORDERED: ZOFRAN INJ 4 MG VIAL IVP ONE (11:10)
[2020-03-31] MEDS ORDERED: ZOFRAN INJ 4 MG VIAL ONE ×2 (11:18→18:17)
[2020-03-31] MEDS ORDERED: DEMEROL INJ ONE ×4 (11:18→22:41)
[2020-03-31] MEDS ORDERED: NS 1000 ML 1,000 ML ONE ×2 (11:18→19:46)
[2020-03-31 11:26] LABS: BILIRUBIN,URINE NEGATIVE (NEGATIVE); BLOOD/HEMOGLOBIN,URINE NEGATIVE (NEGATIVE); GLUCOSE, URINE NEGATIVE (NEGATIVE); KETONES,URINE NEGATIVE (NEGATIVE); LEUKOCYTE ESTERASE ,URINE 1+ (NEGATIVE); NITRITES,URINE NEGATIVE (NEGATIVE); PH,URINE 6.5 (5.0 - 8.0); PROTEIN,URINE NEGATIVE (NEGATIVE); UROBILINOGEN,URINE NORMAL (NORMAL)
--- NOTE | 2020-03-31 11:27 | ED.ABDFE ---
HPI Time Seen Time Seen by Provider: 03/31/20 11:06 PCP Primary Care Physician: RENÉE HPI Comment HPI Comment: PATIENT IS 24YR OLD FEMALE IN ER WITH RLQ ABDOMINAL PAIN TIMES 3 DAYS. PAIN IS 10/10, SHARP, RADIATING TO THE BACK. PAIN ASSOCIATED WITH NAUSEA. DENIES FEVER, VOMITING, DIARRHEA OR DYAURIA OR HEMATURIA. PAIN UNBEARABLE TODAY. DENIES VAGINAL DISCHARGE. Complaint Doctors Chief Complaint Comments: RLQ ABDOMINAL PAIN WITH NAUSEA TIMES 3 DAYS. Chief Complaint:: PT. C/O RLQ PAIN, ONSET OF MONDAY WELL NAUSEA. COVID-19 Coronavirus risk:travel/contact w/high risk person: No Has patient experienced Coronavirus symptoms: No Reviewed Nurses Notes Review: Yes Source History Provided: Patient Mode of arrival Mode of Arrival: Wheelchair Timing Onset of Chief Complaint: 03/28/20 Came on: Suddenly Duration Since Onset: Constant Duration: Days Location Location: Diffuse Severity Severity: Moderate Quality Quality: Sharp Context History of: None Modifying factors Worsening Factors: Exertion Improving Factors: Lying Still Associated signs and symptoms Associated Signs and Symptoms: Nausea PMH PMH Past Medical History: Yes Past Medical History: Arthritis Past Surgical History: Yes Surgical History: Thyroidectomy Family History History of Family Medical Conditions: Yes Family Medical History: Coronary Artery Disease and Hypertension Social History Does patient currently use any type of tobacco product: No Have you used tobacco products in the last 12 months: No Type of Tobacco Use: None Does any household member use tobacco: No Alcohol Use: None Do you use any recreational Drugs:: No Lives With: Spouse Lives Where: Home Travel Risk Coronavirus risk:travel/contact w/high risk person: No Has patient experienced Coronavirus symptoms: No Infectious screening In the last 2 months have you had wt loss of >10#?: NO Have you had fever, night sweats or hemotysis?: No Have you traveled outside the country in the last 6 months?: No Isolation: Standard ROS Review of Systems Constitutional: No Symptoms Reported and See HPI; negative Fever, Weakness and Fatigue Eyes: No Symptoms Reported and See HPI ENTM: No Symptoms Reported and See HPI; negative Nose Discharge and Nose Congestion Respiratoy: No Symptoms Reported and See HPI; negative Productive Cough, Short of Breath and Wheezing Cardiovascular: No Symptoms Reported and See HPI; negative Chest Pain Gastrointestinal/Abdominal: See HPI and Abdominal Pain Genitourinary: No Symptoms Reported and See HPI; negative Dysuria, Frequency and Hematuria Neurological: No Symptoms Reported and See HPI; negative Headache, Weakness and Dizziness Musculoskeletal: No Symptoms Reported and See HPI; negative Back Pain Integumentary: No Symptoms Reported and See HPI; negative Change in Color, Rash and Juandice Hematologic/Lymphatic: No Symptoms Reported and See HPI; negative Easy Bruising and Swollen Glands Endocrine: No Symptoms Reported and See HPI; negative Increased Thirst and Increased Urine Psychiatric: No Symptoms Reported and See HPI All Other Systems: Reviewed and Negative PE Vital Signs Vitals: Temperature 98.1 F Pulse Rate [Left Radial] 76 Pulse Rate 109 Respiratory Rate 18 Blood Pressure [Right Arm] 127/73 Blood Pressure [Left Arm] 114/70 Blood Pressure 138/91 O2 Sat by Pulse Oximetry 100 General Limitations: No Limitations and Language Barrier General Appearance: Alert and In No Apparent Distress Head Head Exam: Normal Inspection Eyes Eye exam: Normal Appearance and PERRL; negative Scleral Icterus and Conjunctival Injection ENT ENT Exam: Normal Exam, Normal Oropharynx, Normal External Ear Exam and TM's Normal Bilaterally Neck Neck Exam: Normal Inspection and Trachea Midline; negative Tenderness and Lymphadenopathy Chest Chest Inspection: Normal Inspection and Symmetric Chest Wall Rise; negative Tenderness Respiratory Respiratory Exam: Normal Lung Sounds Bilat; negative Accessory Muscle Use, Chest Wall Tenderness and Respiratory Distress Respiratory Exam: Bilateral: Clear to Auscultation Cardiovascular Cardiovascular Exam: Regular Rate, Normal Rhythm and Normal Heart Sounds; negative Systolic Murmur and Diastolic Murmur Abdominal Exam Abdominal Exam: Normal Bowel Sounds, Soft and Tenderness Abdominal Tenderness: RLQ and Moderate Rectal Rectal Exam: Deferred Back Back Exam: Normal Inspection; negative (R) CVA Tenderness and (L) CVA Tenderness Extremeties Extremities Exam: Normal Inspection and Normal Capillary Refill; negative Tenderness, Edema and Calf Tenderness External Exam: Female: Deferred : Speculum Exam (Female): Deferred : Bimanual Exam (female): Deferred Neurologic Neurological Exam: Alert, Oriented X3 and CN II-XII Intact; negative Motor Sensory Deficit Psychiatric Psychiatric Exam: Normal Affect and Normal Mood Skin Skin Exam: Warm, Dry and Intact MDM Differential Diagnosis Differential Diagnosis- Considerations may include:: Appendicitis, Cholcystitis, Cholelethiasis, Constipation, Gastritus/PUD, Inflammatory BD, Ischemic Bowel, Ovarian cyst/torsion, Pancreatitis, Urinary tract infection and Urolithiasis COURSE Treatment Treatment: SEE ORDERS. NS 125CC/HR, DEMOROL 25MG IV AND ZOFRAN 4MG IV. Education/Counseling Education/Counseling: Patient Educated On: Diagnosis ROR Labs Reviewed Laboratory Results Reviewed?: Yes Result Diagrams: 04/02/20 05:21 04/02/20 05:21 Laboratory: WBC 12.1 X10^3/uL (3.6-10.0) H 03/31/20 11:22 RBC 5.23 X10^6/uL (3.5-5.4) 03/31/20 11:22 Hgb 14.1 g/dL (12.0-16.0) 03/31/20 11:22 Hct 41.2 % (36.0-47.0) 03/31/20 11:22 MCV 78.7 fL (80.0-100.0) L 03/31/20 11:22 MCH 26.9 pg (27.0-34.0) L 03/31/20 11:22 MCHC 34.1 g/dL (33.0-35.0) 03/31/20 11:22 RDW 12.8 % (11.6-16.5) 03/31/20 11:22 Plt Count 351 X10^3/uL (150.0-450.0) 03/31/20 11:22 MPV 7.7 fL (7.4-11.0) 03/31/20 11:22 Neut % (Auto) 73.8 % (42.0-75.0) 03/31/20 11:22 Lymph % (Auto) 18.5 % (21.0-51.0) L 03/31/20 11:22 Hinds % (Auto) 5.5 % (0.0-13.0) 03/31/20 11:22 Eos % (Auto) 1.6 % (0.9-2.9) 03/31/20 11:22 Baso % (Auto) 0.6 % (0.2-1.0) 03/31/20 11:22 Neut # (Auto) 8.9 x10^3/uL (2.2-4.8) H 03/31/20 11:22 Lymph # (Auto) 2.2 X10^3/uL (1.3-2.9) 03/31/20 11:22 Hinds # (Auto) 0.7 x10^3/uL (0.3-0.8) 03/31/20 11:22 Eos # (Auto) 0.2 x10^3/uL (0.0-0.2) 03/31/20 11:22 Baso # (Auto) 0.1 X10^3/uL (0.0-0.1) 03/31/20 11:22 Absolute Nucleated RBC 0.1 /100WBC 03/31/20 11:22 Sodium 139 mmol/L (136-145) 03/31/20 11:22 Corrected Sodium TNP 03/31/20 11:22 Potassium 3.6 mmol/L (3.5-5.1) 03/31/20 11:22 Chloride 104 mmol/L (98-107) 03/31/20 11:22 Carbon Dioxide 24.2 mmol/L (21-32) 03/31/20 11:22 BUN 8 mg/dL (7-18) 03/31/20 11:22 Creatinine 0.69 mg/dL (0.55-1.02) 03/31/20 11:22 Est GFR (MDRD) Af Amer > 60 (>60) 03/31/20 11:22 Est GFR (MDRD) Non-Af > 60 (>60) 03/31/20 11:22 Glucose 96 mg/dL (65-99) 03/31/20 11:22 Calcium 8.9 mg/dL (8.5-10.1) 03/31/20 11:22 Corrected Calcium TNP 03/31/20 11:22 Total Bilirubin 0.30 mg/dL (0.2-1.0) 03/31/20 11:22 AST 15 Units/L (15-37) 03/31/20 11:22 ALT 27 Units/L (12-78) 03/31/20 11:22 Alkaline Phosphatase 143 Units/L (46-116) H 03/31/20 11:22 Total Protein 7.4 g/dL (6.4-8.2) 03/31/20 11:22 Albumin 3.5 g/dL (3.4-5.0) 03/31/20 11:22 Globulin 3.9 g/dL (2.5-4.5) 03/31/20 11:22 Albumin/Globulin Ratio 0.9 Ratio (1.1-2.1) L 03/31/20 11:22 Amylase 35 Units/L (25-115) 03/31/20 11:22 Lipase 72 Units/L (73-393) L 03/31/20 11:22 HCG, Qual Negative <10 mIU/mL 03/31/20 11:22 Specimen Type Clean catch urine 03/31/20 11:03 Urine Color Yellow (YELLOW) 03/31/20 11:03 Urine Appearance Hazy (CLEAR) 03/31/20 11:03 Urine pH 6.5 (5.0 - 8.0) 03/31/20 11:03 Ur Specific [place] 1.015 (1.000-1.030) 03/31/20 11:03 Urine Protein Negative (NEGATIVE) 03/31/20 11:03 Urine Glucose (UA) Negative (NEGATIVE) 03/31/20 11:03 Urine Ketones Negative (NEGATIVE) 03/31/20 11:03 Urine Occult Blood Negative (NEGATIVE) 03/31/20 11:03 Urine Nitrite Negative (NEGATIVE) 03/31/20 11:03 Urine Bilirubin Negative (NEGATIVE) 03/31/20 11:03 Urine Urobilinogen Normal (NORMAL) 03/31/20 11:03 Ur Leukocyte Esterase 1+ (NEGATIVE) 03/31/20 11:03 Urine RBC 0-2 /HPF (0-3) 03/31/20 11:03 Urine WBC 3-5 /HPF (0-5) 03/31/20 11:03 Ur Squamous Epith Cells Numerous /HPF (NEGATIVE) 03/31/20 11:03 Amorphous Sediment 1+ /HPF (NEGATIVE) 03/31/20 11:03 Urine Bacteria 1+ /HPF (NEGATIVE) 03/31/20 11:03 Ur Culture Indicated? No/not indicated 03/31/20 11:03 XRAY XRAY Interpreted by: Radiologist and Self Opioid Opioid Risk Tool Age (Sha box if 16-45): Yes History of Preadolescent Sexual Abuse: No Total: 1 Total Score Risk Category: Low Risk Copyright: Dain predicting aberrant behaviors Diagnosis Discharge Problem: Abdominal pain Qualifiers: Abdominal location: right lower quadrant Qualified Code(s): R10.31 - Right lower quadrant pain Instructions Instructions: Incentive Spirometer How to Change Your Dressing, [id number] Managing Pain Without Opioids Wound Check Pain Relief Before and After Surgery Laparoscopic Appendectomy, Adult, Care After, [id number] Stitches, [place], or Adhesive Wound Closure, [id number] Incision Care, Adult, Wext-al-Efna Incision Care, Adult You've Been Prescribed an Antibiotic in the Hospital for an Infection - [facility] (06/2017) Preventing Problems After Surgery Preventing Constipation After Surgery Forms: Excuse From Work or School Precautions for COVID19 Patient Portal Social Distancing
[2020-03-31 11:37] LABS: BASOPHILS # (AUTO) 0.1 X10^3/uL (0.0-0.1); BASOPHILS % (AUTO) 0.6 % (0.2-1.0); EOSINOPHILS # (AUTO) 0.2 x10^3/uL (0.0-0.2); EOSINOPHILS % (AUTO) 1.6 % (0.9-2.9); HEMATOCRIT 41.2 % (36.0-47.0); HEMOGLOBIN 14.1 g/dL (12.0-16.0); LYMPHOCYTES # (AUTO) 2.2 X10^3/uL (1.3-2.9); LYMPHOCYTES % (AUTO) 18.5 % (21.0-51.0); MEAN CORPUSCULAR HEMOGLOBIN 26.9 pg (27.0-34.0); MEAN CORPUSCULAR HGB CONC 34.1 g/dL (33.0-35.0); MEAN CORPUSCULAR VOLUME 78.7 fL (80.0-100.0); MEAN PLATELET VOLUME 7.7 fL (7.4-11.0); MONOCYTES # (AUTO) 0.7 x10^3/uL (0.3-0.8); MONOCYTES % (AUTO) 5.5 % (0.0-13.0); NEUTROPHILS # (AUTO) 8.9 x10^3/uL (2.2-4.8); NEUTROPHILS % (AUTO) 73.8 % (42.0-75.0); PLATELET COUNT 351 X10^3/uL (150.0-450.0); RED BLOOD COUNT 5.23 X10^6/uL (3.5-5.4); RED CELL DISTRIBUTION WIDTH 12.8 % (11.6-16.5); WHITE BLOOD COUNT 12.1 X10^3/uL (3.6-10.0)
[2020-03-31 11:38] LABS: AMORPHOUS SEDIMENT,UR 1+ /HPF (NEGATIVE); APPEARANCE,URINE HAZY (CLEAR); BACTERIA,URINE 1+ /HPF (NEGATIVE); COLOR,URINE YELLOW (YELLOW); RBC,URINE 0-2 /HPF (0-3); SQUAMOUS EPITHELIAL CELL,UR NUMEROUS /HPF (NEGATIVE)
[2020-03-31] MEDS: NS 1000 ML 1,000 ML IV SCH ×2 (11:39→19:49)
[2020-03-31 11:46] LABS: ALANINE AMINOTRANSFERASE 27 Units/L (12-78); ALBUMIN 3.5 g/dL (3.4-5.0); ALKALINE PHOSPHATASE 143 Units/L (46-116); AMYLASE 35 Units/L (25-115); ASPARTATE AMINO TRANSFERASE 15 Units/L (15-37); BLOOD UREA NITROGEN 8 mg/dL (7-18); CALCIUM 8.9 mg/dL (8.5-10.1); CARBON DIOXIDE 24.2 mmol/L (21-32); CHLORIDE 104 mmol/L (98-107); CREATININE 0.69 mg/dL (0.55-1.02); LIPASE 72 Units/L (73-393); SODIUM 139 mmol/L (136-145); TOTAL PROTEIN 7.4 g/dL (6.4-8.2); eGFR NON BLACK RACES > 60 (>60)
[2020-03-31 11:51] LABS: SERUM PREGNANCY TEST, QUAL NEGATIVE <10 mIU/mL
[2020-03-31] MEDS ORDERED: NS 100 ML IV 100 ML IV ONE (13:46)
--- NOTE | 2020-03-31 14:21 | CT ---
HISTORYRLQ ABD PAINSTUDYABDOMEN/PELVIS WITH CONCOMPARISONNone.TECHNIQUEMultiple axial images of the abdomen and pelvis were obtained from the lung bases to the pubic symphysis after the administration of IV contrast. Dose reduction techniques including Automated Exposure Control (AEC) and adjustment of mA and kV were utilized.FINDINGSLung bases appear clear. The heart is normal in size. The liver, gallbladder, spleen, pancreas, adrenal glands, and kidneys have a benign appearance. Urinary bladder is mostly decompressed. Uterus is present. 2.8 cm cystic right adnexal lesion is normal for patient age. No large abnormal pelvic mass. Diverticulosis of the colon without evidence of diverticulitis. Appendix is not visualized but there is no significant inflammatory change in its expected location. Small bowel feces sign of the terminal ileum. Negative for bowel obstruction. Non-atherosclerotic normal caliber abdominal aorta. Portal vein is patent. No pathologic adenopathy. No free air, free fluid or collection. No acute osseous abnormality.IMPRESSIONAppendix is not identified but there is no significant inflammation in its expected location. Small bowel feces sign in the terminal ileum can be seen with delayed bowel transit.Electronically signed by: Gregory Hall (Mar 31, 2020 14:19:27)
[2020-03-31] MEDS: DEMEROL INJ IVP PRN ×2 (17:55→22:48)
[2020-03-31] MEDS: ZOFRAN INJ 4 MG VIAL IVP PRN (18:22)
[2020-03-31] MEDS ORDERED: PEPCID 20 MG IV PREMIX* 20 MG/50 ML BAG IV ONE (21:23)
[2020-03-31] MEDS: PEPCID 20 MG IV PREMIX* 20 MG/50 ML BAG IV PRN (21:24)
[2020-03-31] MEDS ORDERED: PHENERGAN INJ 25 MG IM ONE (21:28)
[2020-03-31] MEDS: PHENERGAN INJ 25 MG IM PRN ×2 (21:29→21:35)
[2020-04-01] MEDS ORDERED: ZOFRAN INJ 4 MG VIAL ONE ×4 (03:40→16:45)
[2020-04-01] MEDS ORDERED: NS 1000 ML 1,000 ML ONE (03:40)
[2020-04-01] MEDS ORDERED: DEMEROL INJ ONE ×2 (03:40→07:59)
[2020-04-01] MEDS: NS 1000 ML 1,000 ML IV SCH (03:44)
[2020-04-01] MEDS: DEMEROL INJ IVP PRN ×2 (03:45→08:04)
[2020-04-01] MEDS: ZOFRAN INJ 4 MG VIAL IVP PRN ×3 (03:46→16:48)
[2020-04-01 06:45] LABS: BASOPHILS # (AUTO) 0.1 X10^3/uL (0.0-0.1); BASOPHILS % (AUTO) 0.6 % (0.2-1.0); EOSINOPHILS # (AUTO) 0.2 x10^3/uL (0.0-0.2); EOSINOPHILS % (AUTO) 1.6 % (0.9-2.9); HEMATOCRIT 39.8 % (36.0-47.0); HEMOGLOBIN 13.4 g/dL (12.0-16.0); LYMPHOCYTES # (AUTO) 2.1 X10^3/uL (1.3-2.9); LYMPHOCYTES % (AUTO) 20.3 % (21.0-51.0); MEAN CORPUSCULAR HEMOGLOBIN 26.5 pg (27.0-34.0); MEAN CORPUSCULAR HGB CONC 33.6 g/dL (33.0-35.0); MEAN CORPUSCULAR VOLUME 79.1 fL (80.0-100.0); MEAN PLATELET VOLUME 8.1 fL (7.4-11.0); MONOCYTES # (AUTO) 0.7 x10^3/uL (0.3-0.8); NEUTROPHILS # (AUTO) 7.4 x10^3/uL (2.2-4.8); NEUTROPHILS % (AUTO) 70.5 % (42.0-75.0); PLATELET COUNT 324 X10^3/uL (150.0-450.0); RED BLOOD COUNT 5.04 X10^6/uL (3.5-5.4); RED CELL DISTRIBUTION WIDTH 12.7 % (11.6-16.5); WHITE BLOOD COUNT 10.5 X10^3/uL (3.6-10.0)
[2020-04-01 07:00] LABS: ALANINE AMINOTRANSFERASE 25 Units/L (12-78); ALBUMIN 3.2 g/dL (3.4-5.0); ALKALINE PHOSPHATASE 135 Units/L (46-116); ASPARTATE AMINO TRANSFERASE 15 Units/L (15-37); BLOOD UREA NITROGEN 5 mg/dL (7-18); CALCIUM 8.8 mg/dL (8.5-10.1); CARBON DIOXIDE 28.9 mmol/L (21-32); CHLORIDE 106 mmol/L (98-107); COR CA(FOR HYPOALB) 9.4 mg/dL (8.5-10.1); CREATININE 0.73 mg/dL (0.55-1.02); SODIUM 142 mmol/L (136-145); TOTAL PROTEIN 6.8 g/dL (6.4-8.2); eGFR NON BLACK RACES > 60 (>60)
[2020-04-01] MEDS ORDERED: LR 1000 ML IV 1,000 ML IV ONE (10:59)
[2020-04-01] MEDS ORDERED: FENTANYL INJ 250 mcg ONE (11:27)
[2020-04-01] MEDS ORDERED: ANCEF 1 GRAM IV PREMIX* 1 G/50 ML BAG IV ONE (11:28)
[2020-04-01] MEDS ORDERED: BACTROBAN TOPICAL OINT ONE (11:36)
[2020-04-01] MEDS ORDERED: POLYMYXIN B SULFATE ONE (11:36)
[2020-04-01] MEDS ORDERED: LTA KIT LIDOCAINE 4% ONE (11:40)
[2020-04-01] MEDS ORDERED: TORADOL 30 MG VIAL ONE (11:40)
[2020-04-01] MEDS ORDERED: QUELICIN (OR ANECTINE) ONE (11:40)
[2020-04-01] MEDS ORDERED: NORCURON INJ 10 MG VIAL ONE (11:40)
[2020-04-01] MEDS ORDERED: VERSED ONE (11:40)
[2020-04-01] MEDS ORDERED: DIPRIVAN VIAL ONE (11:40)
[2020-04-01] MEDS ORDERED: SUPRANE ONE (11:40)
[2020-04-01] MEDS ORDERED: ROBINUL ONE (11:40)
[2020-04-01] MEDS ORDERED: NEOSTIGMINE INJ ONE (11:40)
[2020-04-01] MEDS ORDERED: XYLOCAINE 2 % (PLAIN) ONE (11:40)
[2020-04-01] MEDS ORDERED: ZOFRAN INJ 4 MG VIAL IVP PRN (12:27)
[2020-04-01] MEDS ORDERED: BENADRYL INJ 50 MG VIAL IVP PRN (12:27)
[2020-04-01] MEDS ORDERED: REGLAN INJ 10 MG VIAL IVP PRN (12:27)
[2020-04-01] MEDS ORDERED: PHENERGAN INJ 25 MG IM PRN (12:27)
[2020-04-01] MEDS ORDERED: DILAUDID INJ ONE ×3 (12:39→18:45)
[2020-04-01] MEDS: DILAUDID INJ IVP PRN ×4 (12:41→20:18)
[2020-04-01] MEDS ORDERED: DILAUDID INJ IVP PRN (13:01)
[2020-04-01] MEDS ORDERED: D5 1/2 NS 1000 ML 1,000 ML IV ONE ×2 (13:14→18:45)
[2020-04-01] MEDS: D5 1/2 NS 1000 ML 1,000 ML IV SCH ×2 (13:19→21:53)
[2020-04-01] MEDS ORDERED: ZOSYN VIAL 3.375 GRAMS 3.375 G in NS 100 ML IV + SPIKE MINIBAG* 100 ML IV SCH (14:00)
[2020-04-01] MEDS ORDERED: CLEOCIN 600 MG IV PREMIX 600 MG/50 ML BAG IV ONE ×2 (14:36→18:45)
[2020-04-01] MEDS: CLEOCIN 600 MG IV PREMIX 600 MG/50 ML BAG IV SCH ×2 (14:40→21:53)
[2020-04-01] MEDS ORDERED: PEPCID 20 MG IV PREMIX* 20 MG/50 ML BAG IV ONE (18:45)
[2020-04-01] MEDS: PEPCID 20 MG IV PREMIX* 20 MG/50 ML BAG IV PRN (19:15)
[2020-04-02] MEDS: DILAUDID INJ IVP PRN ×2 (01:00→05:15)
[2020-04-02] MEDS ORDERED: DILAUDID INJ ONE ×2 (01:02→05:21)
[2020-04-02] MEDS ORDERED: D5 1/2 NS 1000 ML 1,000 ML IV ONE (05:21)
[2020-04-02] MEDS ORDERED: CLEOCIN 600 MG IV PREMIX 600 MG/50 ML BAG IV ONE (05:21)
[2020-04-02] MEDS: D5 1/2 NS 1000 ML 1,000 ML IV SCH (05:33)
[2020-04-02] MEDS: CLEOCIN 600 MG IV PREMIX 600 MG/50 ML BAG IV SCH (05:33)
[2020-04-02 06:22] LABS: BASOPHILS % (AUTO) 0.5 % (0.2-1.0); EOSINOPHILS # (AUTO) 0.2 x10^3/uL (0.0-0.2); HEMATOCRIT 36.6 % (36.0-47.0); HEMOGLOBIN 12.5 g/dL (12.0-16.0); LYMPHOCYTES % (AUTO) 21.8 % (21.0-51.0); MEAN CORPUSCULAR HGB CONC 34.2 g/dL (33.0-35.0); MEAN CORPUSCULAR VOLUME 79.1 fL (80.0-100.0); MEAN PLATELET VOLUME 8.1 fL (7.4-11.0); MONOCYTES # (AUTO) 0.7 x10^3/uL (0.3-0.8); NEUTROPHILS # (AUTO) 6.2 x10^3/uL (2.2-4.8); NEUTROPHILS % (AUTO) 67.7 % (42.0-75.0); PLATELET COUNT 290 X10^3/uL (150.0-450.0); RED BLOOD COUNT 4.62 X10^6/uL (3.5-5.4); RED CELL DISTRIBUTION WIDTH 12.8 % (11.6-16.5); WHITE BLOOD COUNT 9.2 X10^3/uL (3.6-10.0)
[2020-04-02 06:53] LABS: ALANINE AMINOTRANSFERASE 22 Units/L (12-78); ALBUMIN 2.8 g/dL (3.4-5.0); ALKALINE PHOSPHATASE 119 Units/L (46-116); ASPARTATE AMINO TRANSFERASE 12 Units/L (15-37); BLOOD UREA NITROGEN 3 mg/dL (7-18); CALCIUM 8.4 mg/dL (8.5-10.1); CARBON DIOXIDE 27.3 mmol/L (21-32); CHLORIDE 106 mmol/L (98-107); COR CA(FOR HYPOALB) 9.4 mg/dL (8.5-10.1); CREATININE 0.73 mg/dL (0.55-1.02); SODIUM 140 mmol/L (136-145); TOTAL PROTEIN 6.2 g/dL (6.4-8.2); eGFR NON BLACK RACES > 60 (>60)
[2020-04-02 08:39] VITALS: BP 120/79
== END 2020-04-02 10:11 | disposition home or self-care (01) ==
LOC: ER 10:54 → MED/SURG 10:54
PROVIDERS: ADMIT Surgery; ATTEND Surgery
PROC: APPYLAP (ICD-10-PCS; 2020-04-01 13:45)
DX: N83.201 Unspecified ovarian cyst, right side; K35.890 Other acute appendicitis without perforation or gangrene; Z20.822 Contact with and (suspected) exposure to COVID-19; R10.31 Right lower quadrant pain

== ENCOUNTER 2021-08-30 07:50 | Inpatient (IN) ==
[2021-08-30] MEDS ORDERED: LR 1,000 ML IV 1,000 ML IV ONE ×3 (08:28→09:29)
[2021-08-30] MEDS ORDERED: ANCEF VIAL 1 GRAM IVP ONE (08:28)
[2021-08-30 08:31] LABS: BILIRUBIN,URINE NEGATIVE (NEGATIVE); BLOOD/HEMOGLOBIN,URINE 2+ (NEGATIVE); GLUCOSE, URINE NEGATIVE (NEGATIVE); KETONES,URINE NEGATIVE (NEGATIVE); LEUKOCYTE ESTERASE ,URINE NEGATIVE (NEGATIVE); NITRITES,URINE NEGATIVE (NEGATIVE); PH,URINE 6.5 (5.0 - 8.0); PROTEIN,URINE NEGATIVE (NEGATIVE); UROBILINOGEN,URINE NORMAL (NORMAL)
[2021-08-30 08:32] LABS: APPEARANCE,URINE CLEAR (CLEAR); COLOR,URINE YELLOW (YELLOW)
[2021-08-30 08:33] LABS: AMNISURE ROM TEST THERE IS A RUPTURE (NO RUPTURE)
[2021-08-30] MEDS ORDERED: ZOFRAN INJ 4 MG VIAL ONE (08:34)
[2021-08-30] MEDS ORDERED: ANCEF VIAL 1 GRAM ONE (08:34)
[2021-08-30] MEDS ORDERED: NS 100 ML IV 100 ML ONE (08:34)
[2021-08-30] MEDS ORDERED: REGLAN INJ 10 MG VIAL ONE (08:35)
[2021-08-30 08:40] LABS: BASOPHILS % (AUTO) 0.3 % (0.2-1.0); EOSINOPHILS # (AUTO) 0.1 x10^3/uL (0.0-0.2); EOSINOPHILS % (AUTO) 0.5 % (0.9-2.9); HEMATOCRIT 33.1 % (36.0-47.0); HEMOGLOBIN 11.5 g/dL (12.0-16.0); LYMPHOCYTES # (AUTO) 1.8 X10^3/uL (1.3-2.9); LYMPHOCYTES % (AUTO) 14.4 % (21.0-51.0); MEAN CORPUSCULAR HEMOGLOBIN 25.8 pg (27.0-34.0); MEAN CORPUSCULAR HGB CONC 34.7 g/dL (33.0-35.0); MEAN CORPUSCULAR VOLUME 74.4 fL (80.0-100.0); MEAN PLATELET VOLUME 8.5 fL (7.4-11.0); MONOCYTES # (AUTO) 0.7 x10^3/uL (0.3-0.8); NEUTROPHILS # (AUTO) 9.6 x10^3/uL (2.2-4.8); NEUTROPHILS % (AUTO) 78.8 % (42.0-75.0); RED BLOOD COUNT 4.45 X10^6/uL (3.5-5.4); RED CELL DISTRIBUTION WIDTH 13.4 % (11.6-16.5); WHITE BLOOD COUNT 12.2 X10^3/uL (3.6-10.0)
[2021-08-30 08:44] LABS: BACTERIA,URINE NEGATIVE /HPF (NEGATIVE); SQUAMOUS EPITHELIAL CELL,UR FEW /HPF (NEGATIVE)
[2021-08-30 08:52] LABS: ALANINE AMINOTRANSFERASE 17 Units/L (12-78); ALBUMIN 2.3 g/dL (3.4-5.0); ALKALINE PHOSPHATASE 199 Units/L (46-116); ASPARTATE AMINO TRANSFERASE 11 Units/L (15-37); BLOOD UREA NITROGEN 6 mg/dL (7-18); CARBON DIOXIDE 22.4 mmol/L (21-32); CHLORIDE 104 mmol/L (98-107); COR CA(FOR HYPOALB) 9.4 mg/dL (8.5-10.1); CREATININE 0.63 mg/dL (0.55-1.02); SODIUM 136 mmol/L (136-145); TOTAL PROTEIN 6.5 g/dL (6.4-8.2); eGFR NON BLACK RACES > 60 (>60)
[2021-08-30] MEDS ORDERED: PEPCID 20 MG VIAL ONE (08:59)
[2021-08-30] MEDS ORDERED: D5 1/2 NS 1,000 ML 1,000 ML IV SCH (09:00)
[2021-08-30] MEDS ORDERED: XYLOCAINE 1 % (PLAIN) ONE (09:07)
[2021-08-30] MEDS ORDERED: MARCAINE SPINAL ONE (09:07)
[2021-08-30 09:08] LABS: MICROCYTOSIS SLIGHT; PLATELET MORPHOLOGY COMMENT NORMAL (NORMAL)
[2021-08-30] MEDS ORDERED: DILAUDID INJ ONE (09:08)
[2021-08-30] MEDS ORDERED: D5 1/2 NS 1,000 mL + PITOCIN 20 UNITS/L IV 20 UNITS/1,000 ML BAG IV ONE (09:29)
[2021-08-30] MEDS ORDERED: TORADOL 30 MG VIAL ONE (10:15)
[2021-08-30] MEDS ORDERED: OFIRMEV IV 1000 MG VIAL 1,000 MG/100 ML VIAL IV ONE (10:15)
[2021-08-30] MEDS ORDERED: BARHEMSYS INJ ONE (10:34)
--- NOTE | 2021-08-30 10:39 | US ---
HISTORYWATER BROKE, ACTIVE LABOR, EVAL FOR PRESENTATIONSTUDYOB GREATER THAN 14 WEEKS LIMITCOMPARISONNone availableTECHNIQUEMultiple jurado scale and color flow Doppler images of the pelvis were obtained with focused evaluation of the fetus.FINDINGSThere is single alive intrauterine fetus in breech presentation. heart rate is 150 beats per minutes. The placenta is seen posterior and fundal. No evidence of placenta previa. There is severe decrease amniotic fluid without significant pockets of fluid. measurements as follows:The BPD is 9.3 centimeters corresponding to and estimated gestational age of 38 38 weeks, 2 daysThe HC is 34.3 centimeter corresponding to and estimated gestational age of 39 weeks and 4 daysThe AC is 33.9 centimeters corresponding to and estimated gestational age of 37 weeks 6 daysThe FL is 7.5 centimeters corresponding to and estimated gestational age of 38 weeks 5 daysThe estimated weight is 3450 grams corresponding with the 76 percentile based on gestational age and 79 percentile on ultrasound.IMPRESSIONSingle alive intrauterine fetus of approximately 38 weeks and 5 days by ultrasound criteria. Breech presentation.Severe decrease amniotic fluid without any pockets. Clinical correlation is recommended.Electronically signed by: Vanna Velazquez (Aug 30, 2021 10:38:59)
[2021-08-30] MEDS ORDERED: NARCAN INJ ONE (11:19)
[2021-08-30] MEDS ORDERED: ZOFRAN INJ 4 MG VIAL IVP PRN ×2 (11:28→11:52)
[2021-08-30] MEDS ORDERED: BENADRYL INJ 50 MG VIAL IVP PRN ×2 (11:28→11:52)
[2021-08-30] MEDS ORDERED: PHENERGAN INJ 25 MG IM PRN (11:28)
[2021-08-30] MEDS ORDERED: REGLAN INJ 10 MG VIAL IVP PRN ×2 (11:28→11:52)
[2021-08-30] MEDS ORDERED: BARHEMSYS INJ IVP PRN (11:28)
[2021-08-30] MEDS ORDERED: PERCOCET TAB 5/325 MG PO PRN (11:52)
[2021-08-30] MEDS ORDERED: MYLICON TAB 80 MG CHEW PO PRN (11:52)
[2021-08-30] MEDS ORDERED: TORADOL 30 MG VIAL IVP PRN (11:52)
[2021-08-30] MEDS ORDERED: ADACEL or BOOSTRIX TDaP VACCINE IM ONE (11:52)
[2021-08-30] MEDS ORDERED: NARCAN INJ IVP PRN (11:52)
[2021-08-30] MEDS ORDERED: D5 1/2 NS 1,000 ML 1,000 ML with PITOCIN 20 UNITS IV SCH ×2 (12:00)
[2021-08-31 04:36] LABS: HEMATOCRIT 29.6 % (36.0-47.0); HEMOGLOBIN 10.2 g/dL (12.0-16.0)
[2021-08-31] MEDS: PRENATAL PLUS PO SCH (08:43)
[2021-08-31] MEDS: COLACE CAP 100 MG PO SCH ×2 (08:43→20:08)
[2021-08-31] MEDS: PROTONIX TAB 40 MG PO SCH (08:43)
[2021-08-31] MEDS: MOTRIN TAB 800 MG PO PRN ×2 (09:30→19:22)
[2021-08-31] MEDS: PERCOCET TAB 5/325 MG PO PRN ×2 (12:28→23:20)
[2021-08-31] MEDS: BACTROBAN TOPICAL OINT TOP SCH ×2 (13:42→22:31)
[2021-09-01] MEDS: BACTROBAN TOPICAL OINT TOP SCH (06:14)
[2021-09-01] MEDS: MOTRIN TAB 800 MG PO PRN (07:50)
[2021-09-01 08:02] VITALS: BP 136/81
[2021-09-01] MEDS: COLACE CAP 100 MG PO SCH (09:19)
[2021-09-01] MEDS: PRENATAL PLUS PO SCH (09:19)
[2021-09-01] MEDS: PROTONIX TAB 40 MG PO SCH (09:19)
[2021-09-01] MEDS: PERCOCET TAB 5/325 MG PO PRN (09:20)
== END 2021-09-01 10:40 | disposition home or self-care (01) | DRG 785 ==
LOC: ER 07:50 → LD 08:53 → MED/SURG 12:12
PROVIDERS: ADMIT Specialist; ATTEND Specialist
DX: O99.891 Other specified diseases and conditions complicating pregnancy; O13.3 Gestational [pregnancy-induced] hypertension without significant proteinuria, third trimester; Z37.0 Single live birth; Z30.2 Encounter for sterilization; K21.9 Gastro-esophageal reflux disease without esophagitis; N87.0 Mild cervical dysplasia; Z3A.38 38 weeks gestation of pregnancy; O32.1XX0 Maternal care for breech presentation, not applicable or unspecified; Z20.822 Contact with and (suspected) exposure to COVID-19